=== PATIENT | female | born 1970 | race Caucasian/White ===

== ENCOUNTER 2017-01-08 01:15 | Emergency (ER) | payer OTHER ==
[~2017-01-08] VITALS: Ht 165.1 cm; Wt 113.6 kg
[~2017-01-08 01:15] MED LIST: ACYC400T17 PO; FES300 PO; PREN1TAB69 PO
[2017-01-08 01:29] VITALS: BP 164/104; PULSE 86; RESP 18; O2SAT 99
--- NOTE | 2017-01-08 02:24 | ED.REPORT ---
HPI-Abd Pain F 40 and Over Date of Service January 08, 2017 ED Provider: Pipe Kitchen MD The pt is a 46 y/o female presenting to the ED complaining of R abd pain. The pain radiates to between her shoulder blades and caused to to wake up at 2330. She has soft tacos w/ sour cream and cheese for dinner before the pain started. She has noticed that fatty foods make her gassy and has had been w/ multiple children. Denies dysuria or changes in defecation. Nursing Notes Stated Complaint: ABDOMINAL PAIN Chief Complaint: Female Abdominal Pain Nursing Notes Reviewed: Yes Allergies: Coded Allergies: No Known Allergies (Verified , 02/23/05) Scheduled Acyclovir-Expunged Drug, Do Not Renew! (Acyclovir-Expunged Drug, Do Not Renew!) 400 Mg Tablet 400 MG PO DAILY Ferrous Sulfate-Expunged Drug, Do Not Renew! (Feosol-Expunged Drug, Do Not Renew !) 325 Mg Tablet 325 MG PO DAILY Omeprazole (Omeprazole) 20 Mg Tablet.dr 20 MG PO BID Vit/Fe Fumarate/Fa-Expunged Drug, Do (-Expunged Drug, Do Not Renew!) 1 Each Tablet 1 EACH PO DAILY Scheduled PRN Ondansetron ODT (Ondansetron ODT) 8 Mg Tab.rapdis 8 MG PO QID PRN PRN For Nausea General Time Seen by MD: 02:24 Chief Complaint Abdominal pain Hx Obtained From: Patient Sudden in Onset?: Yes Onset Occurred: 1 - 4 hours ago Symptom Duration: Since onset Recent Healthcare: No recent doctor visit, No recent hospitalization Similar Sx Previous: Yes Past Medical History Past Medical History None reported Past Surgical History None reported Review of Systems Denies changes in defecation, dysuria GI: Reports: Abdominal pain (Right side ) Musculoskeletal: Reports: Back pain (Between shoulder blades ) Complete sys rev & neg: except as marked. Physical Exam Vital Signs Vital Signs (First) Date Time Temp Pulse Resp B/P Pulse Ox O2 Delivery O2 Flow Rate FiO2 01/08/17 01:29 36.4 86 18 164/104 99 Room Air Initial VS: Reviewed General/Constitutional: Awake, Alert Distress / Hydration: Positive: Distress mild Appearance / Presentation: Positive: Obese Respiratory / Chest: Breath sounds NL, Breath sounds = bilat, No respiratory distress, No rales, No rhonchi, No wheezing, No stridor Cardiovascular: Heart rate NL, Regular rhythm, Heart sounds NL Abdomen: Atraumatic, Soft Tenderness/Guarding/Rebound: Positive: Tender RUQ... (Moderate) Back: Atraumatic, Inspection NL, Full range of motion Head / Eyes: Atraumatic, Normocephalic ENT: Atraumatic, Airway patent, Mucous membranes moist Skin: Atraumatic, Color NL, No rash, Warm, Dry Neurologic: Oriented X3, Speech NL Psychiatric: Affect NL, Mood NL Interpretation & Diagnostics Lab Results Interpretation Result Diagram: 01/08/17 0210 01/08/17 0210 Test 01/08/17 02:10 White Blood Count 8.2th/mm3 (3.8-10.1) Red Blood Count 4.53mil/mm3 (3.90-5.20) Hemoglobin 13.3g/dL (12.0-15.6) Hematocrit 38.3% (35.0-46.0) Mean Corpuscular Volume 84.5fL (81-100) Mean Corpuscular Hemoglobin 29.4pg (27.0-35.0) Mean Corpuscular Hemoglobin Concent 34.7% (32.0-37.0) Red Cell Distribution Width 13.8% (12.3-15.4) Platelet Count 293bil/L (150-400) Neutrophils (%) (Auto) 68.7% (40-74) Lymphocytes (%) (Auto) 22.1% (14-46) Monocytes (%) (Auto) 7.7% (4-12) Eosinophils (%) (Auto) 0.7% (0-5) Basophils (%) (Auto) 0.4% (0-3) Hold Purple Top Tube Received (Received) Prothrombin Time 9.5sec (8.1-12.5) Prothromb Time International Ratio 0.89ratio Hold Blue Top Tube Received (Received) Sodium Level 135mEq/L (134-144) Potassium Level 4.3mEq/L (3.5-5.2) Chloride Level 97mEq/L (97-108) Carbon Dioxide Level 21mmol/L (18-29) Blood Urea Nitrogen 15mg/dL (6-24) Creatinine 0.69mg/dL (0.57-1.00) Estimat Glomerular Filtration Rate 131mL/min (>59) Glucose Level 136mg/dL (60-99) Lactic Acid Level 2.5mmol/L (0.4-2.0) Calcium Level 10.2mg/dL (8.5-10.1) Magnesium Level 2.0mg/dL (1.6-2.6) Total Bilirubin 0.4mg/dL (0.0-1.2) Aspartate Amino Transf (AST/SGOT) 22U/L (0-50) Alanine Aminotransferase (ALT/SGPT) 25U/L (0-32) Alkaline Phosphatase 59U/L (25-150) Total Protein 7.9g/dL (6.4-8.4) Albumin 4.4g/dL (3.4-5.0) Lipase 57U/L (13-60) Hold [place] Top Tube Received (Received) Hold Chopra Top Tube Received (Received) CT Abd / Pelvis Interpretation Impression: Cholelithiasis, in the proper clinical setting cholecystitis should be considered. Bilateral renal stones. No hydronephrosis. The largest on the right measuring 4 mm. This report was transmitted to the emergency room at 01/08/2017 - 3:36:03 AM PDT. Study type: Abdominal CT IV contrast Interpretation / Wet Read by: Interpret - Radiologist Re-Eval/Medical Decision Med Decision/Clinical Course 46-year-old with prolonged colicky right upper quadrant pain, was had multiple lesser episodes in the past. She has multiple stones seen on CT but no evidence of acute cholecystitis otherwise. Pain is now relieved after several hours. She is advised cholecystectomy will be necessary to avoid complications of repetitive attacks. Will follow up with surgery in the office. Home with small supply of Vicodin, Zofran, and directed to follow up with surgical office. Re-Evaluation/Progress : Time of Eval: 04:52 Re-Evaluation/Progress Note: Pt rechecked. Informed pt of plan for treatment. Pt understands and agrees with plan for treatment. F/U instructions and RTER warnings given. All questions addressed. Counseled Regarding: Diagnosis, Lab results, Need for follow-up, When/why to return to ED Discharge & Departure Shift Change Sign-Out Response to Therapy: Improved Primary Impression: Cholelithiasis Additional Impression: Biliary colic Disposition: Home Discharge Condition All VS Reviewed: Yes Condition: Stable Additional Instructions: Review of multiple gallstones on your CT scan, but no evidence of acute infection at this time. Also no evidence of biliary obstruction at this time. Nevertheless, you need to have your gallbladder out as an elective but urgent procedure. Call the surgery office Tuesday to set up an appointment for evaluation. Call your primary care doc to secure a referral. Follow-up with your primary care doc also. In the meantime, adhere to zero fat diet. Fat stimulates the gallbladder to contract, and may cause a stone to lodge in the bile duct, and cause complications. Avoid fat strictly. Return here if you develop intractable vomiting, pain, fever, or any other new symptoms of concern. Sparing use of Vicodin if needed for pain. Zofran if needed for nausea. Omeprazole twice daily. Scribe Attestation Portions of this note were transcribed by Sukhjinder Richmond. I, Dr. Kitchen personally performed the history, physical exam and medical decision-making; I reviewed and confirmed the accuracy of the information in the transcribed note. Signed by : Jose Jung, 01/08/17 and 0509. Pipe Kitchen MD January 08, 2017 02:24 Sukhjinder Richmond January 08, 2017 05:14
[2017-01-08] MEDS ORDERED: 0.9% Sodium Chloride 1,000 ML IV ONE (02:28)
[2017-01-08] MEDS ORDERED: Pantoprazole 4 mg/mL 10 mL Inj IVPUSH ONE (02:30)
[2017-01-08] MEDS ORDERED: Ondansetron 2 mg/mL 2 mL Inj IVPUSH ONE (02:30)
[2017-01-08 02:37] LABS: BASOPHILS % (AUTO) 0.4 % (0-3); EOSINOPHILS % (AUTO) 0.7 % (0-5); MONOCYTES % (AUTO) 7.7 % (4-12); Mean Corpuscular Hemoglobin 29.4 pg (27.0-35.0); Mean Corpuscular Volume 84.5 fL (81-100); NEUTROPHILS % (AUTO) 68.7 % (40-74); Platelet Count 293 bil/L (150-400)
[2017-01-08 02:45] LABS: INR 0.89 ratio
[2017-01-08] MEDS: HYDROmorphone 0.5 mg/0.5 mL iSecure Syringe IVPUSH PRN ×2 (03:01→03:50)
[2017-01-08] MEDS ORDERED: _HYDROcodone/APAP 5-325 mg Tablet PO PRN (05:00)
[2017-01-08] MEDS ORDERED: _Ondansetron ODT 4 mg Tablet PO PRN (05:00)
[2017-01-08] MEDS ORDERED: ONDA8TAB10 PO (05:02)
[2017-01-08] MEDS ORDERED: OMEP20TA86 PO (05:03)
[2017-01-08 06:00] VITALS: PULSE 86; RESP 16; O2SAT 97
--- NOTE | 2017-01-08 08:51 | DRSVH ---
PROCEDURE: CT ABDOMEN AND PELVIS WITH CONTRAST ([id number]) INDICATIONS: ruq pain TECHNIQUE: After the administration of intravenous contrast, 5 mm thick sections acquired from the diaphragm to the symphysis. 5 mm coronal and sagittal reformats were acquired. For radiation dose reduction, the following was used: automated exposure control, adjustment of mA and/or kV according to patient siz e. COMPARISON: None. FINDINGS: Image quality: Excellent. ABDOMEN: Lung bases: Lung bases are clear. Heart size is normal. Solid organs: Liver is enlarged, measuring 25 cm craniocaudal, and demonstrates diffusely decreased density. Gallbladder demonstrates multiple calculi within its lumen. Biliary system is non dilated. Pancreas enhances normally. No adrenal nodules. 6 mm diameter nonobstructing calculus superior irma e right kidney. Kidneys demonstrate normal size and enhancement, without hydronephrosis. Peritoneum and bowel: Bowel loops demonstrate normal wall thickness and caliber. No free fluid or a ir. Nodes and vessels: No retroperitoneal or mesenteric adenopathy by size criteria. Aorta and inferior vena cava are normal in size. Miscellaneous: No ventral hernias. PELVIS: Genitourinary: Urinary bladder is decompressed. Miscellaneous: No inguinal hernias or adenopathy. Bones: No suspicious bony lesions. No vertebral body compression fractures. IMPRESSION: 1. No acute process. 2. Cholelithiasis. 3. Appendix not seen. No evidence of appendicitis. 4. Nonobstructing right superior pole nephrolith. 5. Hepatic steatosis. 6. Concordant with preliminary interpretation. Dictated by: Cong Argueta M.D. on 01/08/2017 at 8:47 Approved by: Cong Argueta M.D. on 01/08/2017 at 8:50
[2017-01-08] MEDS ORDERED: CITA40TA13 PO (13:30)
[2017-01-08] MEDS ORDERED: ZOLP5TAB6 PO (13:30)
[2017-01-08] MEDS ORDERED: METF-413 PO (13:30)
[2017-01-08] MEDS ORDERED: OXYC1TAB24 PO (16:16)
== END 2017-01-08 05:45 | disposition home or self-care (01) ==
LOC: SED 01:15
DX: K80.20 Calculus of gallbladder without cholecystitis without obstruction (principal); K80.50 Calculus of bile duct without cholangitis or cholecystitis without obstruction
CPT/HCPCS: 36415; 74177; 80053; 81025; 83605; 83690; 83735; 85025; 85610; 96361; 96374; 96375; 96376; 99285; J1170; J1885; J2405; J7030; Q9967

== ENCOUNTER 2017-01-08 12:44 | Day surgery (SDC) | payer OTHER ==
[~2017-01-08] VITALS: Ht 165.1 cm; Wt 114.0 kg
[2017-01-08] VITALS (14 sets, daily range): BP systolic 131–161; BP diastolic 68–114; PULSE 85–102; RESP 13–20; O2SAT 92–97
[~2017-01-08 12:44] MED LIST changes: +OMEP20TA86 PO; +ONDA8TAB10 PO
--- NOTE | 2017-01-08 12:45 | NUR ---
Arrival to unit Patient arrived to unit from [facility], admitted to surgery-Dr. Boone to follow. VSS, rates pain 4/10 and tolerable, denies nausea, denies fever. Patient made aware of surgical plan. Dr. Boone notified of patient arrival to unit, verbalizes he will come to the floor to discuss surgical plan and consent patient. Patient states she has been NPO since midnight. IV therapy called to start IV access. RON Romano given report and assuming care of this patient.
[2017-01-08] MEDS ORDERED: D5 0.45% NaCl + KCl 20 mEq/L 1,000 ML IV SCH (13:04)
[2017-01-08] MEDS ORDERED: HYDROmorphone 1 mg/mL Inj IVPUSH PRN ×2 (13:05→15:05)
[2017-01-08] MEDS ORDERED: MetoCLOpramide 5 mg/mL 2 mL Inj IVPUSH PRN ×2 (13:05→15:05)
[2017-01-08] MEDS ORDERED: Ondansetron 2 mg/mL 2 mL Inj IVPUSH PRN ×2 (13:05→15:05)
[2017-01-08] MEDS ORDERED: METF-413 PO (13:30)
[2017-01-08] MEDS ORDERED: ZOLP5TAB6 PO (13:30)
[2017-01-08] MEDS ORDERED: CITA40TA13 PO (13:30)
--- NOTE | 2017-01-08 13:34 | PCM.HPANE ---
Patient Data Surgeon Admitting Provider:Reji Boone MD Attending Provider:Reji Boone MD Primary Care Physician:Daisy Gutierrez MD Other Provider: Reason for Visit Cholecystectomy Ht/WT & BMI Body Mass Index Allergies Coded Allergies: No Known Allergies (Verified , 02/23/05) Past Anesthesia History Anesthesia History: Denies:: Anesthesia Reactions Diabetes History Hx Diabetes?: No MRSA MRSA: No Medications Active Scripts Omeprazole 20 Mg Tablet.dr20 Mg PO BID #60 TABLET Prov:Pipe Kitchen MD 01/08/17 Ondansetron ODT 8 Mg Tab.rapdis8 Mg PO QID PRN For Nausea #20 TABLET Prov:Pipe Kitchen MD 01/08/17 Reported Medications Zolpidem 5 Mg Tablet5 Mg PO HS PRN For Insomnia #30 01/08/17 Metformin ER (Fortamet)1,000 Mg Tab.er.241,000 Mg PO DAILY #90 01/08/17 Citalopram 40 Mg Msfrol72 Mg PO DAILY #90 01/08/17 Discontinued Reported Medications Ferrous Sulfate-Expunged Drug, Do Not Renew! (Feosol-Expunged Drug, Do Not Renew !)325 Mg Vyffme474 Mg PO DAILY 10/13/10 Vit/Fe Fumarate/Fa-Expunged Drug, Do (-Expunged Drug, Do Not Renew!)1 Each Tablet1 Each PO DAILY 10/13/10 Acyclovir-Expunged Drug, Do Not Renew! 400 Mg Hdachb591 Mg PO DAILY 10/13/10 History History of ENT Problems?: No HEENT History: Denies:: Abnormal Airway Cataracts Difficult Intubation Dysphagia Glaucoma Hearing Problem Sinus Problem TMJ Denture Type: None Teeth Condition: Within Normal Limits Hx of Heart Problems?: No Cardiovascular History: Positive for:: Edema (during ) Denies:: Cardiac Surgery Chest Pain Congestive Heart Failure Heart Murmur Hypertension Irregular Heartbeat Pacemaker Thrombophlebitis Hx of Respiratory Problem?: No Respiratory History: Denies:: Asthma COPD Chest Surgery Dyspnea Emphysema Hemoptysis Pneumonia Tuberculosis Hx Neurologic Problems?: Yes Neurological History: Positive for:: Headaches Denies:: Alzheimer's Disease CVA Dementia Dizziness Parkinson's Disease Seizures Hx of GI Problems?: No Other GI Pertinent History: galbladder attacks Hx of Problems?: Yes Genitourinary History: Positive for:: Kidney Stones Urinary Tract Infection Denies:: HX of Hemodialysis HX of Peritoneal Dialysis: No Female Hx: Denies:: Currently Endometriosis Pelvic Inflammatory Problems with Breasts? Hx Musculoskeletal Problems?: No Musculoskeletal History: Denies:: Back Injury Joint Replacement Musculoskeletal Trauma Hx of Psycho/Social Problems?: Yes Psycho Social History: Positive for:: Anxiety Hx Depression Denies:: Bipolar Disorder Suicide Attempt Hx Surgeries?: Yes (Tubal ligation, ) Other History: Positive for:: Hospitalization ( 2010) Denies:: Cancer Thyroid Disease History Blood Transfusions: Positive for:: Accept Blood Products? Denies:: Blood Transfusions Hx Diabetes: No Hx Alcohol Use: Yes (occasionally)Hx Substance Use: No Smoking Status: Never Smoker Stop/Bang Treated for Sleep Apnea?: No Do You Have a CPAP Machine?: No S-Snoring: Do You Snore Loudly: Yes T-Tired: feel tired, fatigued: No O-Obsered: Observed not breath: No P-Blood Pressure: treated: No B- Body Mass Index > 35 kg/m2: Yes A- Age over 50: No N- Neck Large Circumference: Yes G- Gender Male: No SUZY Total Score: 4 SUZY Risk Assessment: High Risk, =/>3 Yes SUZY Category 4 OutPt Procedure: Yes Risk Assessment Category Category 1A: Patient has history of documented sleep apnea, and HAS NOT received any narcotic, sedative or anesthesia administration during this stay. Category 1B: Patient has history of documented sleep apnea, and HAS received any narcotic , sedative or anesthesia administration during this stay Category 2: Patient has SUSPECTED Obstructive Sleep Apnea, and HAS received any narcotic , sedative or anesthesia administration during this stay. Category 3: Patient has SUSPECTED Obstructive Sleep Apnea and HAS NOT received narcotic, sedative or anesthesia administration during this stay. Category 4: Outpatient in Procedural Areas with known sleep apnea or who screen positive for High Risk via the STOP/BANG questionnaire. Exam Exam Vital Signs Vital Signs Date Time Temp Pulse Resp B/P Pulse Ox O2 Delivery O2 Flow Rate FiO2 01/08/17 13:17 37.1 86 20 161/110 96 General Appearance: Alert, Oriented X3, Cooperative, No Acute Distress HEENT/AIRWAY: MP 2 Lungs: Clear to Auscultation, Normal Air Movement Heart: Exam Unremarkable, Regular Rate/Rhythm, No Murmurs/Rubs/Gallops Plan Impression Patient chart reviewed, patient interviewed and anesthestic plan with risks, benefits, and alternatives discussed, and informed consent obtained. NPO per Anesth. Guidelines: Yes ASA Physical Status: ASA2 Mod Systemic Disease Anesthetic Plan: GA Bene/Risks/Altern/Consents: Yes HP Complete Prior to Induction: Yes Diego Vallejo MD January 08, 2017 13:34
[2017-01-08] MEDS ORDERED: Lactated Ringer's 1,000 ML IV ONE (14:33)
[2017-01-08] MEDS ORDERED: Bupivacaine-MPF 0.25% 30 mL Inj INFILTRATE ONE (14:50)
--- NOTE | 2017-01-08 14:58 | HP ---
[address] [address] HISTORY AND PHYSICAL PATIENT: LATONYA CLEMENTE : 1970 MR#: [id number] ADMIT: 01/08/2017 JOB ID: [id number] CHIEF COMPLAINT: Cholecystitis. HISTORY OF PRESENT ILLNESS: The patient is a 46-year-old female, who is admitted to the hospital after developing likely early acute cholecystitis. Last night she woke up around 11:30 p.m. with intense right upper quadrant abdominal pain radiating to her back. She has experienced similar pain in the past but never to such a great intensity and it has never lasted this long. This pain did not go away spontaneously as usual and so she presented to the emergency department. A CT scan was obtained which showed some gallstones but otherwise unremarkable. Labs were checked which were within normal limits. She was, therefore, discharged home with instructions to followup with her PCP to get a referral to see General Surgery. She saw her PCP, Dr. Leon, this morning and was still having a lot of pain. He, therefore, contacted me and I agreed to bring her to the hospital to remove her gallbladder. She continues to complain of pain and nausea. She has been eating since last night. PAST MEDICAL HISTORY: 1. PCOS. 2. Insulin resistance. 3. Anxiety. CURRENT MEDICATIONS: 1. Metformin. 2. Citalopram. ALLERGIES: She has no known drug allergies. PAST SURGICAL HISTORY: C section. FAMILY HISTORY: Family history is reviewed and unremarkable. 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 REVIEW OF SYSTEMS: Full review of systems is obtained and positive for right upper quadrant pain and nausea but otherwise all other systems are negative. PHYSICAL EXAMINATION: She is afebrile with temperature 37.1 degrees, heart rate 86 beats per minute. Blood pressure 161/110, respiratory rate of 20 breaths per minute. Satting 96% on room air. In general, she appears comfortable, in no acute distress. Cardiovascular: She has a regular rate and rhythm. No appreciated murmurs, rubs, gallops. Pulmonary: Lungs clear to auscultation bilaterally. Vascular: She has no carotid bruit. Neck: She has no thyromegaly. Lymphs: She has no cervical lymphadenopathy. GI: Her abdomen is soft, nondistended. She has focal right upper quadrant tenderness to palpation but a negative Campbell sign. Extremities: Warm without significant edema. Skin is warm without rash. Neuro is grossly intact. Psych is pleasant and appropriate. LABORATORIES: Her white blood cell count when in the ED this morning was 8.2, her hematocrit was 38.3. Her bilirubin was 0.4. LFTs were within normal limits. Lipase was normal at 57. IMAGING: CT scan yesterday demonstrated cholelithiasis. The appendix was not visualized, but there is no evidence of appendicitis. She also had a nonobstructing right superior pole kidney stone. ASSESSMENT AND PLAN: This is a 46-year-old female with a history and physical findings suggestive of early acute cholecystitis. I discussed the management with the patient. At this point, I recommend laparoscopic cholecystectomy. The technical and convalescent aspects of surgery, as well as potential risks and complications were reviewed. She understands and wishes to proceed with surgery.
[2017-01-08] MEDS ORDERED: Lactated Ringer's 1,000 ML IV SCH (15:05)
[2017-01-08] MEDS ORDERED: Atropine 0.4 mg/mL Inj IVPUSH PRN (15:05)
[2017-01-08] MEDS ORDERED: EPHEDrine Sulfate 50 mg/mL Inj IVPUSH PRN (15:05)
[2017-01-08] MEDS ORDERED: Dexamethasone 4 mg/mL Inj IVPUSH PRN (15:05)
[2017-01-08] MEDS ORDERED: Lactated Ringer's 500 ML IV PRN (15:05)
[2017-01-08] MEDS ORDERED: Phenylephrine 10,000 mCg/mL Inj IVPUSH PRN (15:05)
[2017-01-08] MEDS ORDERED: fentaNYL-PF 50 mCg/mL 2 mL Inj IVPUSH PRN (15:05)
[2017-01-08] MEDS ORDERED: Labetalol 5 mg/mL 4 mL Inj IV PRN (15:05)
--- NOTE | 2017-01-08 16:11 | PCM.ANEP1 ---
Post Anesthesia PACU Phase 1 Assessment Vital Signs Vital Signs Date Time Temp Pulse Resp B/P Pulse Ox O2 Delivery O2 Flow Rate FiO2 01/08/17 13:17 37.1 86 20 161/110 96 Anesthetic Administered: GA Level of Alertness: Awake, talking PACKER's with Equal Strength: Yes Pain: No Nausea or Vomiting: No CV Function & Hydration Stable: No Airway Device: Oralpharangeal Airway Oxygen Delivery: Simple Mask Lungs: Clear to Auscultation, Normal Air Movement PACU Phase 2 Assessment Complications: No Follow up Care: No Patient Instructions Provided: N/A Diego Vallejo MD January 08, 2017 16:11
--- NOTE | 2017-01-08 16:15 | PCM.DISURG ---
Surgical Discharge Instruction Date of Service January 08, 2017 Dates of Hospitalization Date of Hospital Admission January 08, 2017 at 12:44 Providers Admitting Physician: Reji Boone MD Primary Care Physician: Daisy Gutierrez MD Attending Physician: Reji Boone MD Discharge Diagnosis Discharge Diagnosis acute cholecystitis Diet Discharge Diet: No restrictions Activity Discharge Activity-General: Be up and about, Balance rest and activity, No driving while taking narcotic Dressing and Incisional Care Dressing Care: Remove outer dressing after 24 hrs Hygiene: May shower, NO bathtub, hot tub or whirlpool Follow Up Plan Follow Up Plan f/u with surgical PA in 3-4 weeks Call your provider for: Fever, Chills, Increasing abdominal pain, Nausea, Vomiting, Wound redness Reji Boone MD January 08, 2017 16:15
[2017-01-08] MEDS ORDERED: OXYC1TAB24 PO (16:16)
--- NOTE | 2017-01-08 16:37 | OP ---
[address] [address] OPERATIVE REPORT PATIENT: LATONYA CLEMENTE : 1970 MR#: [id number] ADMIT: 01/08/2017 JOB ID: [id number] DATE OF SURGERY: 01/08/2017 ANESTHESIA: General. PREOPERATIVE DIAGNOSIS(ES): Acute cholecystitis. POSTOPERATIVE DIAGNOSIS(ES): Acute cholecystitis. OPERATIVE PROCEDURE: Laparoscopic cholecystectomy. SURGEON: Reji Boone MD ENVIRONMENT FRIENDLY LANDSCAPE DESIGNER: Lior Kessler PA-C (the secretary administrative assistant was required for the safe and timely completion of the case). COMPLICATIONS: None. ESTIMATED BLOOD LOSS: Less than 20 mL. CONDITION: Satisfactory. SPECIMEN: Gallbladder. FINDINGS: The gallbladder was acutely inflamed and distended. INDICATIONS/SIGNIFICANT HISTORY: The patient is a 46-year-old female with a history consistent with biliary colic, who last night developed recurrent postprandial right upper quadrant pain. However this time the pain persisted prompting a visit to the emergency department. There she was found to have normal labs and was therefore discharged home with plans for outpatient followup. However her pain persisted, prompting her to seek care through her primary care physician who contacted me. OPERATIVE TECHNIQUE: The patient was taken to the operating room and placed in supine position. General anesthesia was administered. Preoperative antibiotics were given. The abdomen was prepped and draped in standard surgical fashion. A procedural pause was performed. Entry was gained into the abdomen through a supraumbilical incision using a 10 mm Optiview trocar. Pneumoperitoneum was achieved without complication. Local anesthetic was injected, followed by insertion of 5 mm ports in the subxiphoid as well as two in the right upper quadrant. Gallbladder was distended. This was aspirated to better facilitate grasping. Then it was grasped and retracted cephalad. Dissection was begun to identify cystic duct and cystic artery. Eventually, I had the base of the gallbladder off the cystic plate and the cystic artery well identified. This was clipped and taken with electrocautery. I then continued to free up the cystic duct which was quite low. Eventually, this was completely cleared. Three clips were placed on this and this was taken sharply. Small amount of bile and sludge had been spilled during the dissection. This was aspirated out. The remainder of the dissection of the gallbladder off the cystic plate was then completed. The gallbladder was placed in EndoCatch bag and removed from the umbilical port site. The surgical bed was then copiously irrigated and aspirated. It was found to be completely hemostatic. The fascia at the umbilical port site was closed using 0 PDS with a laparoscopic suture passer. The lateral ports were then removed under direct visualization followed by release of pneumoperitoneum and removal of the remaining port. Skin was closed using 4-0 Monocryl. The entire procedure was well tolerated without complication.
--- NOTE | 2017-01-08 17:00 | NUR ---
PostOp Pt arrived from PACU to OSC unit, 1003, via gurney. Transferred to bed. A&Ox3 - groggy, In stable condition - on 2L NC / HTN, IV patent, SCDs on, pt with 4x lap sites - steris and bandaids all CDI with minimal sanguineous drainage to umbilicus dressing, Pain present - /10 (0.5mg IVP Dilaudid given to tide pt over until PO pain medications can be given), Pt up to BSC for void. Call light in reach.
[2017-01-08] MEDS ORDERED: Neostigmine 1 mg/mL 10 mL Inj ONE (20:35)
[2017-01-08] MEDS ORDERED: Ondansetron 2 mg/mL 2 mL Inj ONE (20:35)
[2017-01-08] MEDS ORDERED: Rocuronium 10 mg/mL 5 mL Inj ONE (20:35)
[2017-01-08] MEDS ORDERED: Dexamethasone 4 mg/mL Inj ONE (20:35)
[2017-01-08] MEDS ORDERED: Propofol 10,000 mCg/mL 20 mL Inj ONE (20:35)
[2017-01-08] MEDS ORDERED: fentaNYL-PF 50 mCg/mL 2 mL Inj ONE (20:35)
[2017-01-08] MEDS ORDERED: Glycopyrrolate 0.2 MG/ML 1mL Inj ONE (20:35)
[2017-01-08] MEDS ORDERED: Succinylcholine Chloride 20 mg/mL 5 mL Inj ONE (20:35)
--- NOTE | 2017-01-08 20:36 | NUR ---
Discharge. Patient tolerating solid foods general diet. Ambulating independently, and reports pain at tolerable level. Discharge instructions read through and questions answered with patient. Adverse side effects of pain medications explained. Offered to assist with dressing, however patient stated she would prefer to dress self. IV removed tip intact. When returned with wheel chair patient and family had already left. All belongings were taken with family.
--- NOTE | 2017-01-09 17:45 | PCM.DC.SUR ---
Discharge Summary Date of Service: January 09, 2017 Date of Hospital Admission: January 08, 2017 at 12:44 Date of Operation(s): January 08, 2017 Date of Discharge: January 08, 2017 Diagnosis at Time of Discharge Acute cholecystitis PCOS. Insulin resistance. Anxiety. Problems: Operation Laparoscopic cholecystectomy Brief History and Physical: The patient is a 46-year-old female, who is admitted to the hospital after developing likely early acute cholecystitis. Last night she woke up around 11:30 p.m. with intense right upper quadrant abdominal pain radiating to her back. She has experienced similar pain in the past but never to such a great intensity and it has never lasted this long. This pain did not go away spontaneously as usual and so she presented to the emergency department. A CT scan was obtained which showed some gallstones but otherwise unremarkable. Labs were checked which were within normal limits. She was, therefore, discharged home with instructions to followup with her PCP to get a referral to see General Surgery. She saw her PCP, Dr. Leon, this morning and was still having a lot of pain. He, therefore, contacted me and I agreed to bring her to the hospital to remove her gallbladder. She continues to complain of pain and nausea. She has been eating since last night. She is afebrile with temperature 37.1 degrees, heart rate 86 beats per minute. Blood pressure 161/110, respiratory rate of 20 breaths per minute. Satting 96% on room air. In general, she appears comfortable, in no acute distress. Cardiovascular: She has a regular rate and rhythm. No appreciated murmurs, rubs, gallops. Pulmonary: Lungs clear to auscultation bilaterally. Vascular: She has no carotid bruit. Neck: She has no thyromegaly. Lymphs: She has no cervical lymphadenopathy. GI: Her abdomen is soft, nondistended. She has focal right upper quadrant tenderness to palpation but a negative Campbell sign. Extremities: Warm without significant edema. Skin is warm without rash. Neuro is grossly intact. Psych is pleasant and appropriate. LABORATORIES: Her white blood cell count when in the ED this morning was 8.2, her hematocrit was 38.3. Her bilirubin was 0.4. LFTs were within normal limits. Lipase was normal at 57. IMAGING: CT scan yesterday demonstrated cholelithiasis. The appendix was not visualized, but there is no evidence of appendicitis. She also had a nonobstructing right superior pole kidney stone. Consultants: None Hospital Course: The patient was taken to the operating room for a laparoscopic cholecystectomy which was performed without complication. Please see the operating room notes for details of the procedure. She tolerated the procedure well and was transferred to her hospital room where she remained for only a short time before being found to have good pain control and was then discharged to home in good condition. Pathology: pending Disposition: home in stable condition. Follow-up Plan: Discharge Diet: No restrictions Discharge Activity-General: Be up and about, Balance rest and activity, No driving while taking narcotic Dressing Care: Remove outer dressing after 24 hrs Hygiene: May shower, NO bathtub, hot tub or whirlpool Follow Up Plan f/u with surgical PA in 3-4 weeks Call your provider for: Fever, Chills, Increasing abdominal pain, Nausea, Vomiting, Wound redness Citalopram (Citalopram) 40 Mg Tablet 40 MG PO DAILY (Reported) Metformin ER (Fortamet) 1,000 Mg Tab.er.24 1,000 MG PO DAILY (Reported) Omeprazole (Omeprazole) 20 Mg Tablet.dr 20 MG PO BID Ondansetron ODT (Ondansetron ODT) 8 Mg Tab.rapdis 8 MG PO QID PRN PRN For Nausea Zolpidem (Zolpidem) 5 Mg Tablet 5 MG PO HS PRN PRN For Insomnia (Reported) oxyCODONE-Acetaminophen 5-325 mg (oxyCODONE-Acetaminophen 5-325 mg) 1 Each Tablet 1-2 TAB PO Q6H PRN PRN For Pain copies to: Chad Leon MD, Samuel L PA-C January 09, 2017 17:45
--- NOTE | 2017-01-13 14:11 | PATH ---
SURGICAL PATHOLOGY Attending Physician:Reji Boone MD CASE STATUS: Signed Out PATIENT NAME: LATONYA CLEMENTE PID: [id number] : 1970 DATE COLLECTED:01/08/2017 00:00 SPECIMEN: Gallbladder CLINICAL HISTORY: 1. GALLBLADDER FINAL DIAGNOSIS: 1.GALLBLADDER: CHOLELITHIASIS. No evidence of malignancy. ICD10 K80.7 GROSS DESCRIPTION: The specimen is received in one formalin filled container labeled with the patient's name, sublabeled "gallbladder" and consists of a slightly opened 8.5 x 3.0 x 3.0 CM gallbladder. The serosa is smooth. The wall is 0.2-0.4 CM in thickness. The mucosa is a dark covarrubias-brown in color. The lumen contains a yellow-covarrubias to yellow-brown friable material and 20+ dark green calculi which range in size from 0.1-0.6 CM in greatest dimension. 5 factory representative sections are submitted in one cassette. 01/11/2017 [facility] MICRO DESCRIPTION: See diagnosis. ICD-9 CODES: CPT CODES: 1: 95868 Electronically Signed Out Yumiko Yates MD [facility] Pathology [facility] [address], [place] [address] Technical component performed at [facility], [address] [place] [address] Ave[address], [place], [address]
== END 2017-01-08 20:36 | disposition home or self-care (01) ==
LOC: SAS 12:44 → OSC 12:44 → UNDOADMOB 12:44 → OSC 12:49 → SAS 20:36 → UNDODISOB 20:36
PROVIDERS: ATTEND General Practice
DX: K80.20 Calculus of gallbladder without cholecystitis without obstruction (principal); E28.2 Polycystic ovarian syndrome; G47.00 Insomnia, unspecified; F41.1 Generalized anxiety disorder; F32.9 Major depressive disorder, single episode, unspecified; Z79.84 Long term (current) use of oral hypoglycemic drugs
CPT/HCPCS: 47562; J0330; J1100; J1170; J2250; J2405; J2710; J3010; J7120